=== PATIENT | female | born 1970 | race Caucasian/White ===

== ENCOUNTER 2025-02-13 17:48 | Emergency (ER) | payer MEDICARE, OTHER ==
[~2025-02-13] VITALS: Ht 160 cm; Wt 50.9 kg
[2025-02-13 17:56] VITALS: BP 109/71; PULSE 90; RESP 13; TEMP 98.1; O2SAT 100
[2025-02-13] MEDS ORDERED: ESCI20TA87 PO (17:59)
[2025-02-13] MEDS ORDERED: ROPI2TAB26 PO (17:59)
[2025-02-13] MEDS ORDERED: DULO30CA62 PO (17:59)
[2025-02-13] MEDS ORDERED: BUPR1PAT28 TP (17:59)
[2025-02-13] MEDS ORDERED: GABA-1201 PO (17:59)
[2025-02-13] MEDS ORDERED: LAMO-24 PO (17:59)
[2025-02-13] MEDS ORDERED: ESTR-95 PO (17:59)
[2025-02-13] MEDS ORDERED: HYDR-4072 PO (18:01)
[2025-02-13] MEDS ORDERED: SENN-374 PO (18:05)
[2025-02-13] MEDS ORDERED: LINA145C PO (18:05)
[2025-02-13] MEDS ORDERED: BUPR1PAT23 TD (18:07)
[2025-02-13] MEDS ORDERED: DOCU100C33 PO (18:07)
[2025-02-13 18:41] LABS: PLATELET COUNT (AUTO) 221 K/uL (150-450); RED BLOOD CELL COUNT(AUTO) 3.92 MIL/uL (4.00-5.20); RED CELL DISTRIBUTION WIDTH 12.7 % (11.5-14.5); WHITE BLOOD COUNT (AUTO) 5.3 K/uL (4.5-11.0)
[2025-02-13 18:50] LABS: CALCIUM, TOTAL 9.0 mg/dL (8.8-10.5); CREATININE 0.62 mg/dL (0.60-1.30); GLOMERULAR FILTR. RATE CALC > 60 mL/min (>60); GLUCOSE,RANDOM 91 mg/dL (70-110); SODIUM SERUM 136 mmol/L (136-145); UREA NITROGEN, BLOOD 5 mg/dL (7-18)
== END 2025-02-13 21:55 | disposition left against medical advice (07) ==
LOC: EMS 17:48
DX: R10.9 Unspecified abdominal pain (principal); Z53.21 Procedure and treatment not carried out due to patient leaving prior to being seen by health care provider
CPT/HCPCS: 80048; 83690; 85025